=== PATIENT | male | born 1960 | race Caucasian/White ===

== ENCOUNTER → 2022-09-16 | Outpatient (CLI) | payer MEDICAID, SELFPAY ==
--- NOTE | 2022-09-16 16:10 | RAD_ITS ---
STUDY: X-RAY - LUMBAR SPINE REASON FOR EXAM: Male, 62 years old. Pain. TECHNIQUE: 4 view(s) of the lumbar spine were obtained. COMPARISON: None FINDINGS: Osteopenia. Normal lumbar lordosis. There is no substantial scoliosis. There is a normal alignment of the vertebrae. Diffuse facet sclerosis. Diffuse intervertebral disc space narrowing with osteophyte formation and vacuum phenomenon at multiple. Multiple surgical clips. RAD/Lumbar Spine 2 or 3 Views IMPRESSION: Osteopenia with diffuse moderate lumbosacral spondylosis. Electronically Signed: Tato Brito, at 14:07 EST ,
== END | disposition home or self-care (01) ==
LOC: RAD 16:09
PROVIDERS: Referring Provider Anesthesiology Pain Medicine; Visit Provider Anesthesiology Pain Medicine
DX: M51.36 Other intervertebral disc degeneration, lumbar region (principal); M51.37 Other intervertebral disc degeneration, lumbosacral region
CPT/HCPCS: 72100